=== PATIENT | female | born 2000 | race American Indian/Alaskan Native ===

== ENCOUNTER 2021-02-05 23:53 | Emergency (ER) | payer SELFPAY ==
[2021-02-06] MEDS ORDERED: Naloxone 0.4 MG/ML SDV IVPUSH ONE (00:13)
[2021-02-06] MEDS ORDERED: Sodium Chloride 0.9% 1,000 ML IV SCH ×3 (00:15→02:15)
--- NOTE | 2021-02-06 00:19 | EDM.PDOC ---
<Dayana Murray - Last Filed: 02/06/21 02:10> ED HPI GENERAL MEDICAL PROBLEM - General Chief Complaint: Drug or Alcohol Abuse Stated Complaint: O.D. Time Seen by Provider: 02/06/21 00:16 Source of Information: Reports: Patient, Police History Limitations: Reports: No Limitations - History of Present Illness INITIAL COMMENTS - FREE TEXT/NARRATIVE: pt was stopped for a trafic violation today and she took a overdose of herion mixed with fentyl. She took about 2.5 times what she normally takes. She states she took a quad. t Onset: Today, Other ( This was taken about 1 hour prior to arrival. ) Location: Reports: Generalized Associated Symptoms: Reports: Nausea/Vomiting, Shortness of Breath - Related Data Allergies Allergy/AdvReac Type Severity Reaction Status Date / Time No Known Allergies Allergy Verified 02/06/21 00:16 Home Meds: Home Meds NK [No Known Home Meds] 02/06/21 [History] ED ROS GENERAL - Review of Systems Review Of Systems: See Below Constitutional: Reports: No Symptoms HEENT: Reports: No Symptoms Respiratory: Reports: No Symptoms Cardiovascular: Reports: No Symptoms Endocrine: Reports: No Symptoms GI/Abdominal: Reports: Nausea, Vomiting Musculoskeletal: Reports: No Symptoms Skin: Reports: No Symptoms Neurological: Reports: Other (pt is quite obtunded. pt took about 2.5 times what she normally takes. She also used mrth earlier in the day. ) Psychiatric: Reports: Anxiety - Physical Exam Exam: See Below Text/Narrative:: pt admits when she was arrested that she took about 2.5 times what she normally takes of the herion fentyl that she uses. She did take meth earlier in the day. She had a warrant for her arrest and that is why she got stopped. Exam Limited By: No Limitations General Appearance: Alert, Anxious, Other (pt is quite agitated. ) Ears: Normal TMs Nose: Normal Inspection Throat/Mouth: Normal Inspection Head Exam: Atraumatic Neck: Normal Inspection Respiratory/Chest: No Respiratory Distress Cardiovascular: Regular Rate, Rhythm GI/Abdominal: Soft, Non-Tender (Female) Exam: Deferred Rectal (Female) Exam: Deferred Neuro Exam (Abbreviated): Alert, Oriented, Normal Cognition #1 Interpretation Rhythm: NSR EKG Interpretation Comments: this is a normal ekg with normal sinus rhythm. Rate is 84. Course - Re-Assessments/Exams Free Text/Narrative Re-Assessment/Exam: 02/06/21 02:10 pt has a drug screen positive for opiates and meth. She is stable with the resp staus. Poison control was called and felt she should be observed until about 4 am. Pt has been hydrated with 2 liters of fluid. Departure - Departure Disposition: Home, Self-Care 01 Condition: Fair Clinical Impression: Overdose - Discharge Information Instructions: Intentional Drug Overdose Referrals: PCP,None [Primary Care Provider] - Forms: ED Department Discharge Care Plan Goals: Avoid illicit drug abuse in the future, it is killing you. <Tony Henderson - Last Filed: 02/06/21 09:17> Course - Vital Signs Last Recorded V/S: Last Vital Signs Temp 97.0 F 02/06/21 05:45 Pulse 72 02/06/21 08:00 Resp 12 02/06/21 08:00 BP 117/60 02/06/21 08:00 Pulse Ox 98 02/06/21 08:00 - Orders/Labs/Meds Orders: Active Orders 24 hr Category Date Time Status EKG 12 Lead [EK] Routine Ther 02/06/21 00:15 Ordered Labs: Laboratory Tests 02/06/21 02/06/21 02/06/21 Range/Units 00:07 00:07 00:07 WBC 10.4 (4.5-11.0) K/uL RBC 5.00 (3.30-5.50) M/uL Hgb 15.0 (12.0-15.0) g/dL Hct 43.7 (36.0-48.0) % MCV 87 (80-98) fL MCH 30 (27-31) pg MCHC 34 (32-36) % Plt Count 304 (150-400) K/uL Neut % (Auto) 68.3 H (36-66) % Lymph % (Auto) 22.6 L (24-44) % Mercer % (Auto) 8.1 H (2-6) % Eos % (Auto) 0.6 L (2-4) % Baso % (Auto) 0.4 (0-1) % Sodium 138 L (140-148) mmol/L Potassium 4.0 (3.6-5.2) mmol/L Chloride 102 (100-108) mmol/L Carbon Dioxide 31 (21-32) mmol/L Anion Gap 9.0 (5.0-14.0) mmol/L BUN 15 (7-18) mg/dL Creatinine 0.9 (0.6-1.0) mg/dL Est Cr Clr Drug Dosing 96.15 mL/min Estimated GFR (MDRD) > 60 (>60) Glucose 87 (74-106) mg/dL Calcium 8.7 (8.5-10.1) mg/dL Total Bilirubin 0.4 (0.2-1.0) mg/dL AST 9 L (15-37) U/L ALT 20 (12-78) U/L Alkaline Phosphatase 93 (46-116) U/L Total Protein 7.6 (6.4-8.2) g/dL Albumin 3.9 (3.4-5.0) g/dL Globulin 3.7 H (2.3-3.5) g/dL Albumin/Globulin Ratio 1.1 L (1.2-2.2) Urine Color (YELLOW) Urine Appearance (CLEAR) Urine pH (5.0-8.0) Ur Specific Cadet (1.008-1.030) Urine Protein (NEGATIVE) mg/dL Urine Glucose (UA) (NEGATIVE) mg/dL Urine Ketones (NEGATIVE) mg/dL Urine Occult Blood (NEGATIVE) Urine Nitrite (NEGATIVE) Urine Bilirubin (NEGATIVE) Urine Urobilinogen (0.2-1.0) EU/dL Ur Leukocyte Esterase (NEGATIVE) Urine RBC (0-5) Urine WBC (0-5) Ur Epithelial Cells Amorphous Sediment Urine Bacteria Urine Mucus Urine HCG, Qual Urine Opiates Screen (NEGATIVE) Ur Oxycodone Screen (NEGATIVE) Urine Methadone Screen (NEGATIVE) Ur Propoxyphene Screen (NEGATIVE) Ur Barbiturates Screen (NEGATIVE) Ur Tricyclics Screen (NEGATIVE) Ur Phencyclidine Scrn (NEGATIVE) Ur Amphetamine Screen (NEGATIVE) U Methamphetamines Scrn (NEGATIVE) Urine MDMA Screen (NEGATIVE) U Benzodiazepines Scrn (NEGATIVE) U Cocaine Metab Screen (NEGATIVE) U Marijuana (THC) Screen (NEGATIVE) Ethyl Alcohol < 3 mg/dL 02/06/21 02/06/21 02/06/21 Range/Units 00:45 00:46 01:05 WBC (4.5-11.0) K/uL RBC (3.30-5.50) M/uL Hgb (12.0-15.0) g/dL Hct (36.0-48.0) % MCV (80-98) fL MCH (27-31) pg MCHC (32-36) % Plt Count (150-400) K/uL Neut % (Auto) (36-66) % Lymph % (Auto) (24-44) % Mercer % (Auto) (2-6) % Eos % (Auto) (2-4) % Baso % (Auto) (0-1) % Sodium (140-148) mmol/L Potassium (3.6-5.2) mmol/L Chloride (100-108) mmol/L Carbon Dioxide (21-32) mmol/L Anion Gap (5.0-14.0) mmol/L BUN (7-18) mg/dL Creatinine (0.6-1.0) mg/dL Est Cr Clr Drug Dosing mL/min Estimated GFR (MDRD) (>60) Glucose (74-106) mg/dL Calcium (8.5-10.1) mg/dL Total Bilirubin (0.2-1.0) mg/dL AST (15-37) U/L ALT (12-78) U/L Alkaline Phosphatase (46-116) U/L Total Protein (6.4-8.2) g/dL Albumin (3.4-5.0) g/dL Globulin (2.3-3.5) g/dL Albumin/Globulin Ratio (1.2-2.2) Urine Color Yellow (YELLOW) Urine Appearance Cloudy A (CLEAR) Urine pH 5.0 (5.0-8.0) Ur Specific Cadet >= 1.030 (1.008-1.030) Urine Protein Negative (NEGATIVE) mg/dL Urine Glucose (UA) Negative (NEGATIVE) mg/dL Urine Ketones Negative (NEGATIVE) mg/dL Urine Occult Blood Moderate H (NEGATIVE) Urine Nitrite Negative (NEGATIVE) Urine Bilirubin Small H (NEGATIVE) Urine Urobilinogen 1.0 (0.2-1.0) EU/dL Ur Leukocyte Esterase Negative (NEGATIVE) Urine RBC 5-10 H (0-5) Urine WBC 5-10 H (0-5) Ur Epithelial Cells Many Amorphous Sediment Few Urine Bacteria Moderate Urine Mucus Moderate Urine HCG, Qual Negative Urine Opiates Screen Presumptive positive H (NEGATIVE) Ur Oxycodone Screen Negative (NEGATIVE) Urine Methadone Screen Negative (NEGATIVE) Ur Propoxyphene Screen Negative (NEGATIVE) Ur Barbiturates Screen Negative (NEGATIVE) Ur Tricyclics Screen Negative (NEGATIVE) Ur Phencyclidine Scrn Negative (NEGATIVE) Ur Amphetamine Screen Presumptive positive H (NEGATIVE) U Methamphetamines Scrn Presumptive positive H (NEGATIVE) Urine MDMA Screen Presumptive positive H (NEGATIVE) U Benzodiazepines Scrn Negative (NEGATIVE) U Cocaine Metab Screen Negative (NEGATIVE) U Marijuana (THC) Screen Negative (NEGATIVE) Ethyl Alcohol mg/dL Meds: Medications Discontinued Medications Generic Name Dose Route Start Last Admin Trade Name Freq PRN Reason Stop Dose Admin Sodium Chloride 1,000 mls @ 999 mls/hr 02/06/21 00:15 02/06/21 00:15 Normal Saline IV 999 mls/hr ASDIRECTED JERZY Administration Sodium Chloride 1,000 mls @ 999 mls/hr 02/06/21 00:30 02/06/21 01:15 Normal Saline IV 999 mls/hr ASDIRECTED JERZY Administration Sodium Chloride 1,000 mls @ 250 mls/hr 02/06/21 02:15 02/06/21 02:17 Normal Saline IV 250 mls/hr ASDIRECTED JERZY Administration Naloxone HCl 0.1 mg 02/06/21 00:13 02/06/21 00:20 Naloxone 0.4 Mg/Ml Sdv IVPUSH 02/06/21 00:14 0.1 mg ONETIME ONE Administration Departure - Departure Time of Disposition: 08:23 Sepsis Event Note (ED) - Focused Exam Vital Signs: Vital Signs Temp Pulse Resp BP Pulse Ox 02/06/21 08:00 72 12 117/60 98 02/06/21 05:45 97.0 F 77 11 L 95/46 L 96 02/06/21 04:45 73 10 L 97/47 L 98 02/06/21 03:34 83 12 101/43 L 98 02/06/21 03:14 90 10 L 101/45 L 96 02/06/21 02:54 97.8 F 88 11 L 99/42 L 94 L 02/06/21 02:34 90 13 104/43 L 95 02/06/21 02:14 81 11 L 97/54 L 96 02/06/21 01:54 97.4 F 83 12 103/56 L 98 02/06/21 01:34 84 10 L 110/60 98 02/06/21 01:14 81 10 L 109/63 100 02/06/21 00:54 83 10 L 109/64 98 02/06/21 00:34 80 9 L 110/80 98 02/06/21 00:15 142 H 8 L 143/101 H 97 02/05/21 23:53 94.7 F L 90 10 L 131/90 91 L
== END 2021-02-06 08:23 | disposition home or self-care (01) ==
LOC: JP.ED 23:53
DX: T40.1X2A Poisoning by heroin, intentional self-harm, initial encounter (principal); T40.412A Poisoning by fentanyl or fentanyl analogs, intentional self-harm, initial encounter
CPT/HCPCS: 36415; 80053; 80305-QW; 80307; 81001; 81025; 85025; 93005; 96374; 99284-25; J2310; J7030

== ENCOUNTER 2023-04-03 17:16 | Emergency (ER) | payer OTHER | END 2023-04-03 21:05 | LOC: JP.ED 17:16 | DX: O99.891 Other specified diseases and conditions complicating pregnancy (principal); R10.30 Lower abdominal pain, unspecified; Z02.89 Encounter for other administrative examinations; Z3A.36 36 weeks gestation of pregnancy | CPT/HCPCS: 76801; 99283; 99284 ==